=== PATIENT | female | born 1980 | race Caucasian/White ===

== ENCOUNTER 2016-10-05 02:15 | Emergency (ER) | payer SELFPAY ==
[2016-10-05] MEDS ORDERED: FAMOTIDINE 20 MG TABLET PO ONE (03:14)
[2016-10-05] MEDS ORDERED: PREDNISONE 20 MG TABLET PO ONE (03:14)
[2016-10-05] MEDS ORDERED: DIPHENHYDRAMINE HCL 50 MG CAPSULE PO ONE (03:15)
--- NOTE | 2016-10-05 03:20 | ER Document Report ---
ED Skin Rash/Insect Bite/Abscs - General Chief Complaint: Itching Stated Complaint: FEVER/COUGH Time seen by provider: 03:16 Mode of Arrival: Ambulatory Information source: Patient Notes: 35-year-old female presents to ED for cough congestion fever or sore throat for 2 weeks states she's been taken Tylenol and broke out with a rash about a week ago. She states she continue taking the Tylenol and took Benadryl with it, but the rash is not getting better. She states the rash feels like is burning inside and itches very bad. TRAVEL OUTSIDE OF THE [place] IN LAST 30 DAYS: No - HPI Patient complains to provider of: Skin rash/lesion Onset: Last week Onset/Duration: Intermittent Quality of pain: Achy - All over, Burning - The rash Severity: Moderate Pain Level: 3 Skin Character: Urticarial Quality of rash: Itchy, Burning Identify cause: No Exacerbated by: Denies Relieved by: Denies Similar symptoms previously: Yes Recently seen / treated by doctor: No - Related Data Allergies/Adverse Reactions: acetaminophen [From Tylenol] Allergy (Verified 10/05/16 04:37) Hives Past Medical History - General Information source: Patient - Social History Smoking Status: Never Smoker Cigarette use (# per day): No Chew tobacco use (# tins/day): No Smoking Education Provided: No Frequency of alcohol use: None Drug Abuse: None Lives with: Family Family History: Arthritis, DM, Hyperlipidemia, Hypertension. denies: None, Reviewed & Not Pertinent, CAD, COPD, CVA, Malignancy, Thyroid Disfunction, Other Patient has suicidal ideation: No Patient has homicidal ideation: No - Past Medical History Cardiac Medical History: Reports: None Pulmonary Medical History: Reports: None EENT Medical History: Reports: None Neurological Medical History: Reports: None Endocrine Medical History: Reports: None Renal/ Medical History: Reports: None Malignancy Medical History: Reports: None GI Medical History: Reports: None Musculoskeltal Medical History: Reports None Skin Medical History: Reports None Psychiatric Medical History: Reports: None Traumatic Medical History: Reports: None Infectious Medical History: Reports: None Past Surgical History: Reports: Hx Section, Hx Cholecystectomy - Immunizations Immunizations up to date: Yes Hx Diphtheria, Pertussis, Tetanus Vaccination: Yes Review of Systems - Review of Systems Constitutional: Fever, Recent illness EENT: Nose discharge, Sinus discharge, Throat pain Cardiovascular: No symptoms reported Respiratory: No symptoms reported Gastrointestinal: No symptoms reported Genitourinary: No symptoms reported Female Genitourinary: No symptoms reported Musculoskeletal: No symptoms reported Skin: Rash - Urticaria Hematologic/Lymphatic: No symptoms reported Neurological/Psychological: Headaches -: Yes All other systems reviewed and negative Physical Exam - Vital signs Vitals: Temp Pulse Resp BP Pulse Ox 98.2 F 111 H 20 104/77 96 10/05/16 02:20 10/05/16 02:20 10/05/16 02:20 10/05/16 02:20 10/05/16 02:20 Interpretation: Normal - General General appearance: Appears well, Alert - HEENT Head: Normocephalic, Atraumatic Eyes: Normal Pupils: PERRL Ears: Normal External canal: Normal Tympanic membrane: Normal Sinus: Normal Nasal: Swelling, Clear rhinorrhea Mouth/Lips: Normal Mucous membranes: Normal Pharynx: Erythema, Post nasal drainage, Tonsillar hypertrophy Neck: Normal - Respiratory Respiratory status: No respiratory distress Chest status: Nontender Breath sounds: Nonproductive cough Chest palpation: Normal - Cardiovascular Rhythm: Regular Heart sounds: Normal auscultation Murmur: No - Abdominal Inspection: Normal Distension: No distension Bowel sounds: Normal Tenderness: Nontender Organomegaly: No organomegaly - Back Back: Normal, Nontender - Extremities General upper extremity: Normal inspection, Nontender, Normal color, Normal ROM , Normal temperature General lower extremity: Normal inspection, Nontender, Normal color, Normal ROM , Normal temperature, Normal weight bearing. No: Diaz's sign - Neurological Neuro grossly intact: Yes Cognition: Normal Orientation: AAOx4 Flower Coma Scale Eye Opening: Spontaneous Flower Coma Scale Verbal: Oriented [place] Coma Scale Motor: Obeys Commands Flower Coma Scale Total: 15 Speech: Normal Motor strength normal: LUE, RUE, LLE, RLE Sensory: Normal - Psychological Associated symptoms: Normal affect, Normal mood - Skin Skin Temperature: Warm Skin Moisture: Dry Skin Color: Normal Location of irregularity: Generalized Character of irregularity: Urticarial Irregularity with: Tenderness Course - Vital Signs Vital signs: Temp Pulse Resp BP Pulse Ox 98.6 F 97 16 104/70 97 10/05/16 04:18 10/05/16 04:18 10/05/16 04:18 10/05/16 04:18 10/05/16 04:18 Discharge - Discharge Clinical Impression: Allergic reaction Qualifiers: Encounter type: initial encounter Qualified Code(s): T78.40XA - Allergy, unspecified, initial encounter Upper respiratory infection Qualifiers: URI type: unspecified URI Qualified Code(s): J06.9 - Acute upper respiratory infection, unspecified Condition: Stable Disposition: HOME, SELF-CARE Instructions: Family Physicians / Practices Additional Instructions: ACUTE ALLERGIC REACTION: Your symptoms are due to an allergic reaction. Allergy can cause hives, swelling of the hands, feet, and face, hoarseness, and difficulty swallowing or breathing. It may be due to exposure to medication, animal dander, foods, infection, or insect bites. Medication is a common cause, even when prior use of this same medication caused no problems. Acute treatment may include adrenalin and antihistamines. Usually, the specific allergic agent can't be identified unless repeated episodes occur. Home treatment includes the following: (1) Stop any suspicious medications. This will be discussed with you. (2) Oral antihistamines for the next four to five days. Example, diphenhydramine (Benadryl) every four hours. (3) You may also use cimetidine (Tagamet), ranitidine (Zantac), or famotidine ( Pepcid) every four hours if diphenhydramine is not controlling itching and hives. (4) Avoid aspirin until the hives completely disappear. (5) Avoid hot baths or showers until the hives are completely gone. Call the doctor if faintness, difficulty swallowing, tightness in the chest , or wheezing occurs. UPPER RESPIRATORY ILLNESS: You have a viral infection of the respiratory passages -- a "cold." This common infection causes nasal congestion, drainage, and often sore throat and cough. It is highly contagious. The disease usually lasts about 10 to 14 days. There is no "cure" for the viral infection -- it must run its course. If there is a complication, such as bacterial infection in the nose, sinuses, middle ear, or bronchial tubes, antibiotics may be required. The antibiotics won't affect the virus. Drink plenty of fluids. A humidifier may help. An expectorant medication or decongestant may make you more comfortable. Use acetaminophen or ibuprofen for fever or aches. See the doctor if fever persists over two days, if there is any significant worsening of your symptoms, or if you simply fail to improve as expected. USE OF ACETAMINOPHEN (Tylenol): Acetaminophen may be taken for pain relief or fever control. It's much safer than aspirin, offering a wider range of "safe" dosages. It is safe during . Some brand names are Tylenol, Panadol, Datril, Anacin 3, Tempra, and Liquiprin. Acetaminophen can be repeated every four hours. The following are maximum recommended dosages: >89 pounds or adults 650 mg to 900 mg Acetaminophen can be repeated every four hours. Maximum dose not to exceed 4000 mg a day. STEROID MEDICATION: You have been given a medicine of the cortisone/steroid class. This medication is used to control inflammation or allergy. It is usually only given for a short period of time, until the acute process subsides. There are usually no side effects from short-term use of cortisone-like medications. Some persons feel an increased sense of well-being and are not sleepy at bedtime. Long-term use of cortisone medications is best avoided, unless required for a severe condition. If your condition does not remit, or relapses after the course of corticosteroid medication, you should consult your physician. ACID-SUPPRESSING MEDICATION: You have a prescription for medicine which reduces the stomach's secretion of acid. Examples include Zantac, Tagament, and Pepcid. These drugs are often used to allow healing of ulcers or esophagitis. They may be needed to prevent recurrence of ulcers in some patients, or to prevent damage from acid reflux in the esophagus. Take all medication as prescribed, even after the pain is gone. Regular antacids may be added as needed if you have symptoms while taking this medicine. These medications sometimes are prescribed for allergic reactions because they have anti-histaminic effects and relieve the rash and itching of the reaction. There are usually no side effects from this medication. But, in rare cases and particularly in the elderly, serious problems can occur. Contact your doctor if there is fever, rash, hallucinations, confusion, or unusual bruising. Contact your doctor at once if you develop lightheadedness, black or bloody stool, or bloody vomitus. USE OF DIPHENHYDRAMINE: The use of diphenhydramine (Benadryl) has been recommended to control allergic symptoms. The 25 mg strength is available over- the-counter, as well as the elixir. This antihistamine is used for many symptoms. It's useful for itching, watering eyes and nose, allergic swelling, hives, and insect stings. The medication can be repeated four times daily. Age Elixir (12.5 mg/tsp) 25 mg pill 2-3 yr 1/2 tsp 4-8 yr 1 tsp 9-14 yr 2 tsp one tab adult 1-2 tabs Antihistamines may cause drowsiness, especially with the first dose. Do not operate machinery or drive while under the effects of the medication. Do not combine the medication with alcohol, or with any other medication without talking to your doctor. FOLLOW-UP CARE: If you have been referred to a physician for follow-up care, call the physician s office for an appointment as you were instructed or within the next two days. If you experience worsening or a significant change in your symptoms, notify the physician immediately or return to the Emergency Department at any time for re-evaluation. Prescriptions: Prednisone [Deltasone 20 mg Tablet] 3 tab PO DAILY 5 Days
[2016-10-05 04:36] VITALS: BP 104/70
== END 2016-10-05 04:20 | disposition home or self-care (01) ==
LOC: ER 02:15
DX: T78.40XA Allergy, unspecified, initial encounter (principal); J06.9 Acute upper respiratory infection, unspecified; R50.9 Fever, unspecified; R05 Cough; R21 Rash and other nonspecific skin eruption; J02.9 Acute pharyngitis, unspecified
CPT/HCPCS: 99283; 87070; 87880; J7512

== ENCOUNTER 2020-06-03 09:45 | Inpatient (IN) | payer SELFPAY ==
--- NOTE | 2020-06-03 10:20 | ER Document Report ---
ED General - General Chief Complaint: Jaw Pain Stated Complaint: EAR PAIN/LEFT JAW SWELLING Time Seen by Provider: 06/03/20 10:00 Mode of Arrival: Ambulatory Information source: Patient Notes: 39-year-old woman presents to the emergency department with a complaint of swelling in the left jaw and face area. Apparently the swelling to get 2 days ago. She awoke with increased swelling yesterday and went to [facility] where she was given a shot of antibiotics and oral Augmentin. She has taken the fourth dose of Augmentin today. She presents to the emergency department this morning with increased swelling and pain in the left side of the face. She denies a dental problem states that the rash began behind the left ear and has progressed quickly to severe swelling and pain in the left face and jaw. She denies fever, nausea or vomiting. She has no known medical history, no diabetes or hypertension. TRAVEL OUTSIDE OF THE [place] IN LAST 30 DAYS: No - Related Data Allergies/Adverse Reactions: No Known Allergies Allergy (Unverified 06/03/20 09:53) Past Medical History - Social History Smoking Status: Never Smoker Chew tobacco use (# tins/day): No Frequency of alcohol use: None Drug Abuse: None Family History: Arthritis, DM, Hyperlipidemia, Hypertension. denies: None, Reviewed & Not Pertinent, CAD, COPD, CVA, Malignancy, Thyroid Disfunction, Other Patient has homicidal ideation: No Renal/ Medical History: Denies: Hx Peritoneal Dialysis Past Surgical History: Reports: Hx Section, Hx Cholecystectomy - Immunizations Immunizations up to date: Yes Hx Diphtheria, Pertussis, Tetanus Vaccination: Yes Review of Systems - Review of Systems Notes: Constitutional: Negative for fever. HENT: See HPI Eyes: Negative for visual changes. Cardiovascular: Negative for chest pain. Respiratory: Negative for shortness of breath. Gastrointestinal: Negative for abdominal pain, vomiting or diarrhea. Genitourinary: Negative for dysuria. Musculoskeletal: Negative for back pain. Skin: Negative for rash. Neurological: Negative for headaches, weakness or numbness. 10 point ROS negative except as marked above and in HPI. Physical Exam - Vital signs Vitals: Temp Pulse Resp BP Pulse Ox 99.1 F 112 H 20 139/85 H 97 06/03/20 09:53 06/03/20 09:53 06/03/20 09:53 06/03/20 09:53 06/03/20 09:53 - Notes Notes: PHYSICAL EXAMINATION: Physical Exam: General: Well-nourished overweight 39-year-old woman with obvious facial swelling. HEENT: Tissue swelling which extends from the area below the left ear extending across the anterior face and mandible the lower mandibular angle and onto the anterior neck below the chin. There is erythema, tenderness and no focal joints noted. There is swelling around the left ear, the EAC is intact no drainage is noted from the ear. Oral exam there is no swelling around the lower or upper gumline. There is no tenderness to bite along the teeth no obvious infected cavities or abscess. The airway is patent left eye with no swelling no tenderness with extraocular movements. Pupils equal round and reactive to light, MM moist,nares clear, oropharynx clear, airway patent Neck: supple, no adenopathy, no masses. Good range of motion Lungs: clear, no wheezing, no rales no rhonchi CVS: Regular rate and rhythm no murmur gallop or rub Abdomen: Soft, active, nontender, no masses, no hepatosplenomegaly Ext: No edema, clubbing or cyanosis. Neuro: Alert and responsive, moving all 4 extremities on command, cranial nerves intact, no focal findings Skin: Intact no open lesions, no rash PSYCH: Normal mood, normal affect. Course - Re-evaluation Re-evalutation: 06/03/20 12:55 Patient with left facial swelling and tenderness. CT scan revealing a left parotitis, low-grade temp 99 1. Patient notes chills and cold throughout the evening last night. White count is 13.2 and progressive swelling while on oral Augmentin. She also complains of pain and discomfort. Nondiabetic, 39-year-old, a hospital stay with observation and IV antibiotics seems reasonable. I discussed this plan with the patient and she is agreeable. I have contacted the hospitalist, Dr. Benjamin, will admit the patient for the treatment. - Vital Signs Vital signs: Temp Pulse Resp BP Pulse Ox 99.1 F 112 H 20 139/85 H 97 06/03/20 09:53 06/03/20 09:53 06/03/20 09:53 06/03/20 09:53 06/03/20 09:53 - Laboratory Result Diagrams: 06/03/20 10:35 06/03/20 10:35 Laboratory results interpreted by me: 06/03/20 06/03/20 10:35 11:00 WBC 13.2 H Hgb 11.3 L Hct 34.4 L MCV 71 L MCH 23.3 L RDW 19.4 H Absolute Neuts (auto) 10.2 H Urine Blood MODERATE H I have reviewed laboratory data and used this information for the treatment decisions regarding the patient. - Diagnostic Test Radiology reviewed: Image reviewed, Reports reviewed Radiology results interpreted by me: 06/03/20 12:[address] 06/03/20 10:22 IMPRESSION: Constellation of findings consistent with uncomplicated left parotitis. Discharge - Discharge Clinical Impression: Facial cellulitis, Acute parotitis, Left facial swelling Condition: Good Disposition: ADMITTED OBSERVATION Admitting Provider: Sourav (Hospitalist) Unit Admitted: Medical Floor
[2020-06-03] MEDS ORDERED: HYDROMORPHONE HCL INJ/PF 2 MG/ML AMPULE IV ONE (10:23)
[2020-06-03] MEDS ORDERED: CLINDAMYCIN 600 MG/D5W RTU 600 MG/50 ML RTUPB IV ONE (10:24)
[2020-06-03 10:58] LABS: ABSOLUTE EOSINOPHILS # (AUTO) 0.1 10^3/uL (0.0-0.6); ABSOLUTE LYMPHOCYTES (AUTO) 1.9 10^3/uL (0.5-4.7); ABSOLUTE NEUT (AUTO) 10.2 10^3/uL (1.7-8.2); BASOPHILS % (AUTO) 0.2 % (0-2); EOSINOPHILS % (AUTO) 0.4 % (0-6); HEMATOCRIT 34.4 % (36.0-47.0); HEMOGLOBIN 11.3 g/dL (12.0-15.5); LYMPHOCYTES % (AUTO) 14.3 % (13-45); MEAN CORPUSCULAR HEMOGLOBIN 23.3 pg (27.0-33.4); MEAN CORPUSCULAR HGB CONC 32.9 g/dL (32.0-36.0); MEAN CORPUSCULAR VOLUME 71 fl (80-97); MONOCYTES % (AUTO) 7.5 % (3-13); PLATELET COUNT 329 10^3/uL (150-450); RED BLOOD COUNT 4.88 10^6/uL (3.72-5.28); RED CELL DISTRIBUTION WIDTH 19.4 % (11.5-14.0); SEGMENTED NEUTROPHILS % (AUTO) 77.6 % (42-78); TOTAL CELLS COUNTED % (AUTO) 100 %; WHITE BLOOD COUNT 13.2 10^3/uL (4.0-10.5)
[2020-06-03 11:14] LABS: ALBUMIN 4.3 g/dL (3.5-5.0); ALKALINE PHOSPHATASE 63 U/L (38-126); ANION GAP 11 (5-19); ASPARTATE AMINO TRANSFERASE 21 U/L (14-36); BILIRUBIN,DIRECT 0.2 mg/dL (0.0-0.4); BLOOD UREA NITROGEN 11 mg/dL (7-20); CALCIUM 9.4 mg/dL (8.4-10.2); CARBON DIOXIDE 24 mmol/L (22-30); CHLORIDE 104 mmol/L (98-107); GLUCOSE 106 mg/dL (75-110); POTASSIUM 4.2 mmol/L (3.6-5.0); TOTAL PROTEIN 7.3 g/dL (6.3-8.2)
[2020-06-03 11:35] LABS: APPEARANCE,URINE SLIGHTLY-CLOUDY; BILIRUBIN,URINE NEGATIVE (NEGATIVE); COLOR,URINE YELLOW; GLUCOSE, URINE NEGATIVE (NEGATIVE); KETONES,URINE NEGATIVE (NEGATIVE); PROTEIN,URINE NEGATIVE (NEGATIVE); URINE SPECIFIC GRAVITY 1.024; UROBILINOGEN,URINE NEGATIVE mg/dL (<2.0)
--- NOTE | 2020-06-03 12:02 | RADIOLOGY REPORT (SQ) ---
EXAM DESCRIPTION: CT FACIAL AREA WITH IMAGES COMPLETED DATE/TIME: 06/03/2020 11:43 am REASON FOR STUDY: Right facial swelling COMPARISON: None. TECHNIQUE: Post contrast images through the facial bones and orbits windowed for bone and soft tissu e. Additional coronal and sagittal reconstructed images reviewed. All images stored on PACS. All CT scanners at this facility use dose modulation, iterative reconstruction, and/or weight based d osing when appropriate to reduce radiation dose to as low as reasonably achievable (ALARA). [facility]: Dose Right [facility]: CareDose [facility]: Dose Right [facility]: Teradose 4D [facility]: LumaStream CONTRAST TYPE AND DOSE: contrast/concentration: Isovue 350.00 mmol/ml; Total Contrast Delivered: 50. 0 ml; Total Saline Delivered: 49.9 ml RENAL FUNCTION: None required. The patient is less than 50 years old. RADIATION DOSE: CT Rad equipment meets quality standard of care and radiation dose reduction techniq ues were employed. CTDIvol: 30.4 mGy. DLP: 638 mGy-cm. . LIMITATIONS: None. FINDINGS: FACIAL BONES: No fracture or bone lesion. ORBITS: Intact. No fracture. Symmetric intact globes and retroorbital soft tissues. PARANASAL SINUSES: Clear. No significant mucosal thickening, mass or fluid. No nasal polyps. Maxilla ry sinus outlets are patent. SOFT TISSUES: No mass or edema. No abnormal enhancement. INFERIOR BRAIN: Limited view. No acute findings. OTHER: The left parotid gland appears edematous and hyperemic with surrounding inflammatory changes t o include the subcutaneous fat, left anterior cervical soft tissues, and left parapharyngeal space. The airway remains patent. No abscess. Left cervical reactive lymphadenopathy. IMPRESSION: Constellation of findings consistent with uncomplicated left parotitis. TECHNICAL DOCUMENTATION: JOB ID: [id number] Quality ID # [id number]: Final reports with documentation of one or more dose reduction techniques (e.g., Au tomated exposure control, adjustment of the mA and/or kV according to patient size, use of iterative reconstruction technique) 2010 [employer]- All Rights Reserved Reading location - IP/workstation name: [email or web address]
[2020-06-03] MEDS ORDERED: ONDANSETRON HCL INJ/PF 4 MG/2 ML SDV IV PRN (15:24)
[2020-06-03] MEDS ORDERED: NORMAL SALINE 1000 ML 1,000 ML IV ONE (15:24)
[2020-06-03] MEDS ORDERED: RINGERS SOLUTION,LACTATED 1,000 ML IV ONE (15:43)
--- NOTE | 2020-06-03 16:06 | PDOC H&P ---
History of Present Illness Admission Date/PCP: 06/03/20 15:24 Patient complains of: left facial swelling, headache History of Present Illness: TREE JENNINGS is a 39 year old female Past Medical History Medical History: None Cardiac Medical History: Reports: None Pulmonary Medical History: Reports: None EENT Medical History: Reports: None Neurological Medical History: Reports: None Endocrine Medical History: Reports: None Renal/ Medical History: Reports: None Malignancy Medical History: Reports: None GI Medical History: Reports: None Musculoskeltal Medical History: Reports: None Psychiatric Medical History: Reports: None Past Surgical History Past Surgical History: Reports: Section, Cholecystectomy Social History Information Source: Patient Lives with: Family Smoking Status: Never Smoker Electronic Cigarette use?: No Hx Prescription Drug Abuse: No Family History Family History: Arthritis, DM, Hyperlipidemia, Hypertension. denies: None, Reviewed & Not Pertinent, CAD, COPD, CVA, Malignancy, Thyroid Disfunction, Other Parental Family History Reviewed: Yes Children Family History Reviewed: Yes Sibling(s) Family History Reviewed.: Yes Medication/Allergy Home Medications: No Home Medications 06/03/20 Allergies/Adverse Reactions: No Known Allergies Allergy (Unverified 06/03/20 09:53) Review of Systems Constitutional: PRESENT: chills, fever(s), headache(s) Eyes: ABSENT: visual disturbances Ears: PRESENT: hearing changes Nose, Mouth, and Throat: PRESENT: headache(s), mouth pain Cardiovascular: ABSENT: chest pain, dyspnea on exertion, edema, palpitations Respiratory: ABSENT: cough, dyspnea, hemoptysis Genitourinary: ABSENT: dysuria Musculoskeletal: ABSENT: deformity Integumentary: ABSENT: diaphoresis Neurological: ABSENT: abnormal speech, confusion, convulsions, dizziness Psychiatric: ABSENT: anxiety, suicidal ideation Physical Exam Vital Signs: Temp Pulse Resp BP Pulse Ox 100.2 F 112 H 18 159/99 H 99 06/03/20 14:12 06/03/20 09:53 06/03/20 14:13 06/03/20 14:13 06/03/20 14:13 Intake & Output 06/02/20 06/03/20 06/04/20 06:59 06:59 06:59 Intake Total 50 Balance 50 Weight 100.7 kg General appearance: PRESENT: no acute distress, cooperative, obese Head exam: PRESENT: atraumatic, normocephalic Eye exam: PRESENT: EOMI, PERRLA Ear exam: PRESENT: TM's normal bilaterally, other - hyperemic left ear canal, +ve tenderness left tragal and pre auricular area Neck exam: PRESENT: lymphadenopathy, tenderness - left sided from pre auricular to left submandibular. ABSENT: meningismus Respiratory exam: PRESENT: clear to auscultation freya, symmetrical, unlabored Cardiovascular exam: PRESENT: RRR, +S1, +S2 Pulses: PRESENT: +2 pedal pulses bilateral Vascular exam: PRESENT: normal capillary refill GI/Abdominal exam: PRESENT: normal bowel sounds, soft. ABSENT: rebound, tenderness Extremities exam: PRESENT: full ROM Musculoskeletal exam: PRESENT: full ROM Neurological exam: PRESENT: alert, awake, oriented to person, oriented to place, oriented to time, other - purely north korean speaking Skin exam: PRESENT: normal color Results Laboratory Results: 06/03/20 10:35 06/03/20 10:35 06/03/20 06/03/20 06/03/20 10:35 10:35 11:00 WBC 13.2 H RBC 4.88 Hgb 11.3 L Hct 34.4 L MCV 71 L MCH 23.3 L MCHC 32.9 RDW 19.4 H Plt Count 329 Seg Neutrophils % 77.6 Sodium 138.7 Potassium 4.2 Chloride 104 Carbon Dioxide 24 Anion Gap 11 BUN 11 Creatinine 0.75 Est GFR ( Amer) > 60 Glucose 106 Calcium 9.4 Total Bilirubin 1.0 AST 21 Alkaline Phosphatase 63 Total Protein 7.3 Albumin 4.3 Urine Color YELLOW Urine Appearance SLIGHTLY-CLOUDY Urine pH 5.0 Ur Specific [place] 1.024 Urine Protein NEGATIVE Urine Glucose (UA) NEGATIVE Urine Ketones NEGATIVE Urine Blood MODERATE H Urine RBC (Auto) 3 Impressions: Facial Bones CT 06/03/20 10:22 IMPRESSION: Constellation of findings consistent with uncomplicated left parotitis. Assessment and Plan - Diagnosis (1) Acute parotitis Is this a current diagnosis for this admission?: Yes Plan: - has been having ear pain bilateral for at least 1 month with minimal clear to yellowish sometimes foul smelling discharge. +ve headache - no recent hospitalization, no recent swimming - exam ear showed otitis externa bilateral and pre auricular swelling, erythema and tenderness extending to submandibular area - WBC 13 - CT facial uncomplicated left parotitis - will order CT head to r/o extension of infection to brain since she has headaches - continue Clindamycin 600 q6H + ceftri - ENT consult - will hydrate her (2) Acute otitis externa of both ears Qualifiers: Otitis externa type: unspecified type Qualified Code(s): H60.503 - Unspecified acute noninfective otitis externa, bilateral Is this a current diagnosis for this admission?: Yes Plan: - has been having bilateral ear pain with clear to yellowish discharge sometimes foul smelling - +ve tragal tenderness L>R - +ve swelling ear canal bilateral L>R - Clinda and ceftri for parotitis seen on CT - cipro drops for otitis externa - ENT consult (3) Facial cellulitis Is this a current diagnosis for this admission?: Yes Plan: - secondary to parotitis left -management as above (4) Headache Qualifiers: Headache type: other headache syndrome Qualified Code(s): G44.89 - Other headache syndrome Is this a current diagnosis for this admission?: Yes Plan: - likely secondary to ongoing infection - tylenol and morphine - Time Time Spent with patient: 25-34 minutes Anticipated Discharge Disposition: Home, Self Care Anticipated Discharge Timeframe: within 48 hours
[2020-06-03] MEDS: MORPHINE SULFATE 10 MG/ML INJ IV PRN ×2 (16:18→20:18)
[2020-06-03] MEDS: KETOROLAC TROMETHAMINE INJ/PF 30 MG/1 ML SDV IV SCH ×2 (17:09→23:08)
[2020-06-03] MEDS ORDERED: CIPROFLOXACIN HCL/DEXAMETH OTIC DROP 7.5 ML AD SCH (18:00)
[2020-06-03] MEDS: NORMAL SALINE 1000 ML 1,000 ML IV PRN (18:15)
[2020-06-03] MEDS: ENOXAPARIN SODIUM INJ 40 MG/0.4 ML DISP.SYRIN SUBCUT SCH (18:30)
[2020-06-03] MEDS: CEFTRIAXONE 2 GM/D5W RTU 2 GM/50 ML RTUPB IV SCH (18:45)
--- NOTE | 2020-06-03 18:53 | RADIOLOGY REPORT (SQ) ---
EXAM DESCRIPTION: CT HEAD WITHOUT IMAGES COMPLETED DATE/TIME: 06/03/2020 6:39 pm REASON FOR STUDY: acute parotitis complaining of headache COMPARISON: CT facial area with contrast 06/03/2020. TECHNIQUE: Axial images acquired through the brain without intravenous contrast. Images reviewed wi th bone, brain and subdural windows. Images stored on PACS. All CT scanners at this facility use dose modulation, iterative reconstruction, and/or weight based d osing when appropriate to reduce radiation dose to as low as reasonably achievable (ALARA). [facility]: Dose Right [facility]: CareDose [facility]: Dose Right [facility]: Teradose 4D [facility]: Real Estate Direct RADIATION DOSE: CT Rad equipment meets quality standard of care and radiation dose reduction techniq ues were employed. CTDIvol: 53.2 mGy. DLP: 991 mGy-cm. mGy. LIMITATIONS: None. FINDINGS: VENTRICLES: Normal size and contour. CEREBRUM: No mass effect. No hemorrhage. No midline shift. Normal castellanos/white matter differentiatio n. No evidence for acute territorial infarction. CEREBELLUM: No mass effect. No hemorrhage. No alteration of density. No evidence for acute infarct ion. EXTRAAXIAL SPACES: No fluid collections. ORBITS AND GLOBE: Symmetrical contour of the globes. CALVARIUM: No depressed skull fracture. PARANASAL SINUSES: No air-fluid level. SOFT TISSUES: No hematoma. OTHER: Heterogeneous enlargement of the visualized left parotid gland with adjacent soft tissue stra nding. IMPRESSION: 1. No acute intracranial hemorrhage or acute territorial infarct. 2. Heterogeneous enlargement of the visualized left parotid gland with adjacent inflammatory changes , consistent with known acute parotitis, better evaluated on earlier CT facial area. EVIDENCE OF ACUTE STROKE: NO. COMMENT: Quality ID # [id number]: Final reports with documentation of one or more dose reduction techniques (e.g., Automated exposure control, adjustment of the mA and/or kV according to patient size, use of iterative reconstruction technique) TECHNICAL DOCUMENTATION: JOB ID: [id number] [place]-[employer]- All Rights Reserved Reading location - IP/workstation name: [email or web address]
[2020-06-03] MEDS: CLINDAMYCIN 600 MG/D5W RTU 600 MG/50 ML RTUPB IV SCH ×2 (19:48→23:08)
[2020-06-03] MEDS: ACETAMINOPHEN 325 MG TABLET PO PRN (20:17)
[2020-06-04] MEDS: MORPHINE SULFATE 10 MG/ML INJ IV PRN (03:10)
[2020-06-04] MEDS: NORMAL SALINE 1000 ML 1,000 ML IV PRN ×3 (03:14→23:08)
[2020-06-04] MEDS: KETOROLAC TROMETHAMINE INJ/PF 30 MG/1 ML SDV IV SCH ×4 (05:38→23:07)
[2020-06-04] MEDS: CLINDAMYCIN 600 MG/D5W RTU 600 MG/50 ML RTUPB IV SCH ×4 (05:38→23:08)
[2020-06-04 06:30] LABS: ABSOLUTE BASOPHILS # (AUTO) 0.1 10^3/uL (0.0-0.2); ABSOLUTE EOSINOPHILS # (AUTO) 0.1 10^3/uL (0.0-0.6); ABSOLUTE LYMPHOCYTES (AUTO) 2.1 10^3/uL (0.5-4.7); ABSOLUTE MONOCYTES (AUTO) 1.1 10^3/uL (0.1-1.4); ABSOLUTE NEUT (AUTO) 8.7 10^3/uL (1.7-8.2); BASOPHILS % (AUTO) 0.8 % (0-2); EOSINOPHILS % (AUTO) 0.8 % (0-6); HEMATOCRIT 29.2 % (36.0-47.0); HEMOGLOBIN 9.8 g/dL (12.0-15.5); LYMPHOCYTES % (AUTO) 17.2 % (13-45); MEAN CORPUSCULAR HEMOGLOBIN 23.5 pg (27.0-33.4); MEAN CORPUSCULAR HGB CONC 33.5 g/dL (32.0-36.0); MEAN CORPUSCULAR VOLUME 70 fl (80-97); MONOCYTES % (AUTO) 8.8 % (3-13); PLATELET COUNT 302 10^3/uL (150-450); RED BLOOD COUNT 4.17 10^6/uL (3.72-5.28); RED CELL DISTRIBUTION WIDTH 19.3 % (11.5-14.0); SEGMENTED NEUTROPHILS % (AUTO) 72.4 % (42-78); TOTAL CELLS COUNTED % (AUTO) 100 %
[2020-06-04 07:02] LABS: ALBUMIN 3.5 g/dL (3.5-5.0); ALKALINE PHOSPHATASE 58 U/L (38-126); ANION GAP 11 (5-19); ASPARTATE AMINO TRANSFERASE 18 U/L (14-36); BILIRUBIN,DIRECT 0.2 mg/dL (0.0-0.4); BILIRUBIN,TOTAL 0.8 mg/dL (0.2-1.3); BLOOD UREA NITROGEN 8 mg/dL (7-20); CALCIUM 8.4 mg/dL (8.4-10.2); CARBON DIOXIDE 20 mmol/L (22-30); CHLORIDE 106 mmol/L (98-107); GLUCOSE 102 mg/dL (75-110); POTASSIUM 3.9 mmol/L (3.6-5.0); TOTAL PROTEIN 6.2 g/dL (6.3-8.2)
[2020-06-04] MEDS: CIPROFLOXACIN HCL/DEXAMETH OTIC DROP 7.5 ML AU SCH ×2 (10:22→17:03)
[2020-06-04] MEDS: ENOXAPARIN SODIUM INJ 40 MG/0.4 ML DISP.SYRIN SUBCUT SCH (10:22)
[2020-06-04] MEDS: ACETAMINOPHEN 325 MG TABLET PO PRN (10:32)
--- NOTE | 2020-06-04 13:08 | PDOC CONSULTATION ---
Consultation Consult Date: 06/04/20 Provider Consulted: JIMENA HICKS History of Present Illness Admission Date/PCP: 06/03/20 15:24 History of Present Illness: Asked to evaluate this 39y/o female with left sided facial swelling for about 1 week. Pt evaluated in ER and CT scan performed which demonstrated unilateral parotid edema. No abscess formation. Pt is from [facility]. Immunization status is unknow. Pt was admitted and started on IV antibx. Pt states doing better. Past Medical History Cardiac Medical History: Reports: None Pulmonary Medical History: Reports: None EENT Medical History: Reports: None Neurological Medical History: Reports: None Endocrine Medical History: Reports: None Renal/ Medical History: Reports: None Malignancy Medical History: Reports: None GI Medical History: Reports: None Musculoskeltal Medical History: Reports: None Psychiatric Medical History: Reports: None Denies: Depression Past Surgical History Past Surgical History: Reports: Section, Cholecystectomy Social History Lives with: Family Smoking Status: Never Smoker Electronic Cigarette use?: No Frequency of Alcohol Use: None Hx Recreational Drug Use: No Hx Prescription Drug Abuse: No Family History Family History: Arthritis, DM, Hyperlipidemia, Hypertension. denies: None, Reviewed & Not Pertinent, CAD, COPD, CVA, Malignancy, Thyroid Disfunction, Other Parental Family History Reviewed: No Children Family History Reviewed: No Sibling(s) Family History Reviewed.: No Medication/Allergy Home Medications: No Home Medications 06/03/20 Allergies/Adverse Reactions: No Known Allergies Allergy (Unverified 06/03/20 09:53) Review of Systems Constitutional: PRESENT: as per HPI Eyes: PRESENT: as per HPI Ears: PRESENT: as per HPI Nose, Mouth, and Throat: PRESENT: as per HPI Cardiovascular: PRESENT: as per HPI Respiratory: PRESENT: as per HPI Gastrointestinal: PRESENT: as per HPI Genitourinary: PRESENT: as per HPI Musculoskeletal: PRESENT: as per HPI Integumentary: PRESENT: as per HPI Neurological: PRESENT: as per HPI Psychiatric: PRESENT: as per HPI Endocrine: PRESENT: as per HPI Physical Exam Vital Signs: Temp Pulse Resp BP Pulse Ox 98.7 F 96 20 116/65 99 06/04/20 08:11 06/04/20 08:11 06/04/20 08:11 06/04/20 08:11 06/04/20 08:11 Intake & Output 06/03/20 06/04/20 06/05/20 06:59 06:59 06:59 Intake Total 3390 1000 Balance 3390 1000 Weight 123.2 kg Exam: Face/Neck: enlarged, tender left parotid gland. Mild erythema noted over left face and extending to neck. OC/OP: Stensen's duct with clear saliva. CT Neck: inflammatory changes involving the left parotid without evidence of abscess. CT scan personally reviewed by myself Results Laboratory Results: 06/04/20 06:00 06/04/20 06:00 06/04/20 06/04/20 06:00 06:00 WBC 12.0 H RBC 4.17 Hgb 9.8 L Hct 29.2 L MCV 70 L MCH 23.5 L MCHC 33.5 RDW 19.3 H Plt Count 302 Seg Neutrophils % 72.4 Sodium 137.0 Potassium 3.9 Chloride 106 Carbon Dioxide 20 L Anion Gap 11 BUN 8 Creatinine 0.65 Est GFR ( Amer) > 60 Glucose 102 Calcium 8.4 Total Bilirubin 0.8 AST 18 Alkaline Phosphatase 58 Total Protein 6.2 L Albumin 3.5 Impressions: Head CT 06/03/20 00:00 IMPRESSION: 1. No acute intracranial hemorrhage or acute territorial infarct. 2. Heterogeneous enlargement of the visualized left parotid gland with adjacent inflammatory changes, consistent with known acute parotitis, better evaluated on earlier CT facial area. EVIDENCE OF ACUTE STROKE: NO. Facial Bones CT 06/03/20 10:22 IMPRESSION: Constellation of findings consistent with uncomplicated left parotitis. Assessment & Plan - Diagnosis (1) Acute parotitis Is this a current diagnosis for this admission?: Yes Plan: 1. treatment plan discussed with pt and nursing staff 2. pt with unilateral parodititis - consider mumps. Would check pt's immunizations status 3. continue with IV antibx. 4. Recommend warm compresses to affected area along with sialogagues. Avoid caffinated beverages. Drink plenty of fluids. Also recommend parotid massage. (2) Facial cellulitis Is this a current diagnosis for this admission?: Yes (3) Left facial swelling Is this a current diagnosis for this admission?: Yes
--- NOTE | 2020-06-04 13:31 | PDOC PROGRESS REPORT ---
Subjective Progress Note for:: 06/04/20 Subjective:: Marcy Flores is a 39/F, no significant past medical history who came in the emergency room today due to headache, ear pain, left facial swelling. According to the patient she has been having bilateral ear pain for about a month now, with associated minimal clear to yellowish discharge that is sometimes foul- smelling. No consult done. Yesterday when she woke up she noticed left facial redness swelling, she went to an urgent care and she was given 1 dose of cef triaxone IM and discharged on oral Augmentin. This morning she noted that there was more swelling with increased pain and tenderness on the left side of her face prompting ED consult. In the ED, blood pressure 59/88, heart rate 117, temp 100.2, O2 sat 98% on room air. Physical exam noted swelling, erythema and tenderness on the preauricular area extending to the angle of the mandible and submandibular area. CT facial showed left-sided parotitis, no abscess. She was given clindamycin IV and hospitalist service was called to admit and manage her. Dr. Schroeder was consulted for ENT. D2 hospital stay 06/04/20. Patient was seen and examined at bedside. She reports that her pain and headache is much better. Afebrile, able to tolerate full liquid diet. Dr. Schroeder saw her who recommended sour foods to facilitate saliva flow. CT head negative for extension of infection to the brain. Reason For Visit: ACUTE PAROTITIS LEFT Physical Exam Vital Signs: Temp Pulse Resp BP Pulse Ox 98.7 F 96 20 116/65 99 06/04/20 08:11 06/04/20 08:11 06/04/20 08:11 06/04/20 08:11 06/04/20 08:11 Intake & Output 06/03/20 06/04/20 06/05/20 06:59 06:59 06:59 Intake Total 3390 1000 Balance 3390 1000 Weight 123.2 kg General appearance: PRESENT: no acute distress, cooperative Head exam: PRESENT: atraumatic, normocephalic Eye exam: PRESENT: EOMI, PERRLA Mouth exam: PRESENT: moist Neck exam: PRESENT: meningismus, other - +ve swelling left side of face from pre auricular to angle of mandible and submandibular area Respiratory exam: PRESENT: clear to auscultation freya, symmetrical, unlabored Cardiovascular exam: PRESENT: RRR, +S1, +S2 Pulses: PRESENT: +2 pedal pulses bilateral GI/Abdominal exam: PRESENT: normal bowel sounds, soft. ABSENT: rebound, tenderness Extremities exam: PRESENT: full ROM Musculoskeletal exam: PRESENT: full ROM Neurological exam: PRESENT: alert, awake, oriented to person, oriented to place, oriented to time Results Laboratory Results: 06/04/20 06:00 06/04/20 06:00 06/04/20 06/04/20 06:00 06:00 WBC 12.0 H RBC 4.17 Hgb 9.8 L Hct 29.2 L MCV 70 L MCH 23.5 L MCHC 33.5 RDW 19.3 H Plt Count 302 Seg Neutrophils % 72.4 Sodium 137.0 Potassium 3.9 Chloride 106 Carbon Dioxide 20 L Anion Gap 11 BUN 8 Creatinine 0.65 Est GFR ( Amer) > 60 Glucose 102 Calcium 8.4 Total Bilirubin 0.8 AST 18 Alkaline Phosphatase 58 Total Protein 6.2 L Albumin 3.5 Impressions: Head CT 06/03/20 00:00 IMPRESSION: 1. No acute intracranial hemorrhage or acute territorial infarct. 2. Heterogeneous enlargement of the visualized left parotid gland with adjacent inflammatory changes, consistent with known acute parotitis, better evaluated on earlier CT facial area. EVIDENCE OF ACUTE STROKE: NO. Facial Bones CT 06/03/20 10:22 IMPRESSION: Constellation of findings consistent with uncomplicated left parotitis. Assessment and Plan - Diagnosis (1) Acute parotitis Is this a current diagnosis for this admission?: Yes Plan: - has been having ear pain bilateral for at least 1 month with minimal clear to yellowish sometimes foul smelling discharge. +ve headache - no recent hospitalization, no recent swimming - exam ear showed otitis externa bilateral and pre auricular swelling, erythema and tenderness extending to submandibular area - WBC 13>12.0 - A1C normal, non diabetic - CT facial uncomplicated left parotitis - CT head negative - continue D2 Clindamycin 600 q6H + ceftri - ENT consult - [facility] to check mumps immunity - continue IV fluids (2) Acute otitis externa of both ears Qualifiers: Otitis externa type: unspecified type Qualified Code(s): H60.503 - Unspecified acute noninfective otitis externa, bilateral Is this a current diagnosis for this admission?: Yes Plan: - has been having bilateral ear pain with clear to yellowish discharge sometimes foul smelling - +ve tragal tenderness L>R - +ve swelling ear canal bilateral L>R - Clinda and ceftri for parotitis seen on CT - cipro drops for otitis externa - ENT consult (3) Facial cellulitis Is this a current diagnosis for this admission?: Yes Plan: - secondary to parotitis left -management as above (4) Headache Qualifiers: Headache type: other headache syndrome Qualified Code(s): G44.89 - Other headache syndrome Is this a current diagnosis for this admission?: Yes Plan: - likely secondary to ongoing infection - tylenol and morphine - Time Time Spent with patient: 25-34 minutes Medications reviewed and adjusted accordingly: Yes Anticipated Discharge Disposition: Home, Self Care Anticipated Discharge Timeframe: within 48 hours
[2020-06-04] MEDS: CEFTRIAXONE 2 GM/D5W RTU 2 GM/50 ML RTUPB IV SCH (17:51)
[2020-06-05] MEDS: KETOROLAC TROMETHAMINE INJ/PF 30 MG/1 ML SDV IV SCH ×2 (05:17→12:54)
[2020-06-05] MEDS: CLINDAMYCIN 600 MG/D5W RTU 600 MG/50 ML RTUPB IV SCH ×2 (05:17→12:51)
[2020-06-05 05:45] LABS: ABSOLUTE BASOPHILS # (AUTO) 0.1 10^3/uL (0.0-0.2); ABSOLUTE EOSINOPHILS # (AUTO) 0.3 10^3/uL (0.0-0.6); ABSOLUTE LYMPHOCYTES (AUTO) 2.4 10^3/uL (0.5-4.7); ABSOLUTE MONOCYTES (AUTO) 0.8 10^3/uL (0.1-1.4); ABSOLUTE NEUT (AUTO) 6.6 10^3/uL (1.7-8.2); BASOPHILS % (AUTO) 0.9 % (0-2); HEMATOCRIT 28.4 % (36.0-47.0); HEMOGLOBIN 9.6 g/dL (12.0-15.5); LYMPHOCYTES % (AUTO) 23.4 % (13-45); MEAN CORPUSCULAR HEMOGLOBIN 23.8 pg (27.0-33.4); MEAN CORPUSCULAR HGB CONC 33.7 g/dL (32.0-36.0); MEAN CORPUSCULAR VOLUME 71 fl (80-97); MONOCYTES % (AUTO) 7.8 % (3-13); PLATELET COUNT 298 10^3/uL (150-450); RED BLOOD COUNT 4.03 10^6/uL (3.72-5.28); SEGMENTED NEUTROPHILS % (AUTO) 64.9 % (42-78); TOTAL CELLS COUNTED % (AUTO) 100 %; WHITE BLOOD COUNT 10.1 10^3/uL (4.0-10.5)
[2020-06-05 06:08] LABS: ALBUMIN 3.6 g/dL (3.5-5.0); ALKALINE PHOSPHATASE 59 U/L (38-126); ANION GAP 12 (5-19); ASPARTATE AMINO TRANSFERASE 23 U/L (14-36); BILIRUBIN,DIRECT 0.2 mg/dL (0.0-0.4); BILIRUBIN,TOTAL 0.4 mg/dL (0.2-1.3); BLOOD UREA NITROGEN 7 mg/dL (7-20); CALCIUM 8.7 mg/dL (8.4-10.2); CARBON DIOXIDE 19 mmol/L (22-30); CHLORIDE 108 mmol/L (98-107); GLUCOSE 95 mg/dL (75-110); POTASSIUM 3.9 mmol/L (3.6-5.0); TOTAL PROTEIN 6.3 g/dL (6.3-8.2)
[2020-06-05] MEDS: ENOXAPARIN SODIUM INJ 40 MG/0.4 ML DISP.SYRIN SUBCUT SCH (09:11)
[2020-06-05] MEDS: NORMAL SALINE 1000 ML 1,000 ML IV PRN (09:11)
[2020-06-05] MEDS: CIPROFLOXACIN HCL/DEXAMETH OTIC DROP 7.5 ML AU SCH (09:11)
--- NOTE | 2020-06-05 12:40 | PDOC DISCHARGE SUMMARY ---
Impression - Admit/DC Date/PCP Admission Date/Primary Care Provider: 06/03/20 15:24 Discharge Date: 06/05/20 - Discharge Diagnosis (1) Acute parotitis Is this a current diagnosis for this admission?: Yes (2) Acute otitis externa of both ears Is this a current diagnosis for this admission?: Yes (3) Facial cellulitis Is this a current diagnosis for this admission?: Yes (4) Headache Is this a current diagnosis for this admission?: Yes - Additional Information Discharge Diet: Regular Referrals: [facility] [Provider Group] Prescriptions: Amoxicillin/Potassium Clav [Augmentin 875-125 Tablet] 1 tab PO Q12 8 Days #16 tablet Home Medications: Amoxicillin/Potassium Clav [Augmentin 875-125 Tablet] 1 tab PO Q12 8 Days #16 tablet 06/05/20 History of Present Illiness History of Present Illness: According to admitting provider: FloresMarcy mccartney is a 39/F, no significant past medical history who came in the emergency room today due to headache, ear pain, left facial swelling. According to the patient she has been having bilateral ear pain for about a month now, with associated minimal clear to yellowish discharge that is sometimes foul- smelling. No consult done. Yesterday when she woke up she noticed left facial redness swelling, she went to an urgent care and she was given 1 dose of ceftriaxone IM and discharged on oral Augmentin. This morning she noted that there was more swelling with increased pain and tenderness on the left side of her face prompting ED consult. In the ED, blood pressure 59/88, heart rate 117, temp 100.2, O2 sat 98% on room air. Physical exam noted swelling, erythema and tenderness on the preauricular area extending to the angle of the mandible and submandibular area. CT facial showed left-sided parotitis, no abscess. She was given clindamycin IV and hospitalist service was called to admit and manage her. Dr. Schroeder was consulted for ENT. Hospital Course Hospital Course: Patient was admitted for evaluation and treatment of left parotid gland inflammation. Notably her symptoms had just started very recently and she does not remember ever having any MMR vaccine in the past. She was started on broad- spectrum IV antibiotics with ceftriaxone and clindamycin. Facial CT showed findings consistent with uncomplicated left parotitis without any abscess. Head CT was also unremarkable for any spread of infection to the brain or sinuses. Blood work revealed some leukocytosis. Vital signs also indicated of of fever. Blood cultures are negative at 48 hours. Patient was also started on Cipro eardrops with concern for acute otitis externa which is likely secondary to the same infectious pathogen that is causing patient's parotitis. Patient was evaluated by ENT. Mumps serology was sent. Patient's acute parotitis could have been caused by a virus or bacterial pathogen. Given patient's lack of vaccination, it is very likely that she is experiencing viral parotitis secondary to mumps. I do not see any suppuration in her oral cavity. Patient has been instructed to remain on the isolation and avoid sharing utensils or salivary exchange for at least 3 more days to limit transmission to others. It is expected that this should resolve spontaneously if viral. However, I will discharge patient with Augmentin for 8 days to complete 10 days of antibiotic treatment for bacterial parotitis just in case the cause is bacterial. I believe resolution and treatment of her parotitis would culminate in resolution of her otitis as well. Encourage patient to ensure oral hydration and to [facility]. She can take [id number] Tylenol or ibuprofen for fevers. Physical Exam Vital Signs: Temp Pulse Resp BP Pulse Ox 98.4 F 95 17 100/79 98 06/05/20 08:42 06/05/20 08:42 06/05/20 08:42 06/05/20 08:42 06/05/20 08:42 Intake & Output 06/04/20 06/05/20 06/06/20 06:59 06:59 06:59 Intake Total 3390 4212 Balance 3390 4212 Weight 123.2 kg 123.2 kg General appearance: PRESENT: no acute distress, cooperative Eye exam: ABSENT: conjunctiva pink, periorbital swelling, scleral icterus Mouth exam: PRESENT: other - No notable exudation or suppuration in the oral cavity Neck exam: PRESENT: other - Enlarged swelling of left parotid which has improved since presentation going across below her jaw with mild erythema and tenderness. Respiratory exam: PRESENT: unlabored. ABSENT: stridor, tachypnea, wheezes Cardiovascular exam: PRESENT: +S1, +S2. ABSENT: tachycardia Neurological exam: PRESENT: alert, awake Results Laboratory Results: WBC 10.1 10^3/uL (4.0-10.5) 06/05/20 05:11 RBC 4.03 10^6/uL (3.72-5.28) 06/05/20 05:11 Hgb 9.6 g/dL (12.0-15.5) L 06/05/20 05:11 Hct 28.4 % (36.0-47.0) L 06/05/20 05:11 MCV 71 fl (80-97) L 06/05/20 05:11 MCH 23.8 pg (27.0-33.4) L 06/05/20 05:11 MCHC 33.7 g/dL (32.0-36.0) 06/05/20 05:11 RDW 19.0 % (11.5-14.0) H 06/05/20 05:11 Plt Count 298 10^3/uL (150-450) 06/05/20 05:11 Lymph % (Auto) 23.4 % (13-45) 06/05/20 05:11 [place] % (Auto) 7.8 % (3-13) 06/05/20 05:11 Eos % (Auto) 3.0 % (0-6) 06/05/20 05:11 Baso % (Auto) 0.9 % (0-2) 06/05/20 05:11 Absolute Neuts (auto) 6.6 10^3/uL (1.7-8.2) 06/05/20 05:11 Absolute Lymphs (auto) 2.4 10^3/uL (0.5-4.7) 06/05/20 05:11 Absolute Monos (auto) 0.8 10^3/uL (0.1-1.4) 06/05/20 05:11 Absolute Eos (auto) 0.3 10^3/uL (0.0-0.6) 06/05/20 05:11 Absolute Basos (auto) 0.1 10^3/uL (0.0-0.2) 06/05/20 05:11 Seg Neutrophils % 64.9 % (42-78) 06/05/20 05:11 Sodium 138.9 mmol/L (137-145) 06/05/20 05:11 Potassium 3.9 mmol/L (3.6-5.0) 06/05/20 05:11 Chloride 108 mmol/L (98-107) H 06/05/20 05:11 Carbon Dioxide 19 mmol/L (22-30) L 06/05/20 05:11 Anion Gap 12 (5-19) 06/05/20 05:11 BUN 7 mg/dL (7-20) 06/05/20 05:11 Creatinine 0.62 mg/dL (0.52-1.25) 06/05/20 05:11 Est GFR ( Amer) > 60 (>60) 06/05/20 05:11 Est GFR (MDRD) Non-Af > 60 (>60) 06/05/20 05:11 Glucose 95 mg/dL (75-110) 06/05/20 05:11 Hemoglobin A1c % 4.6 % (4.7-6.0) L 06/04/20 06:00 Calcium 8.7 mg/dL (8.4-10.2) 06/05/20 05:11 Total Bilirubin 0.4 mg/dL (0.2-1.3) 06/05/20 05:11 Direct Bilirubin 0.2 mg/dL (0.0-0.4) 06/05/20 05:11 Neonat Total Bilirubin Not Reportable 06/05/20 05:11 Neonat Direct Bilirubin Not Reportable 06/05/20 05:11 Neonat Indirect Bili Not Reportable 06/05/20 05:11 AST 23 U/L (14-36) 06/05/20 05:11 ALT 23 U/L (<35) 06/05/20 05:11 Alkaline Phosphatase 59 U/L (38-126) 06/05/20 05:11 Total Protein 6.3 g/dL (6.3-8.2) 06/05/20 05:11 Albumin 3.6 g/dL (3.5-5.0) 06/05/20 05:11 Urine Color YELLOW 06/03/20 11:00 Urine Appearance SLIGHTLY-CLOUDY 06/03/20 11:00 Urine pH 5.0 (5.0-9.0) 06/03/20 11:00 Ur Specific [place] 1.024 06/03/20 11:00 Urine Protein NEGATIVE mg/dL (NEGATIVE) 06/03/20 11:00 Urine Glucose (UA) NEGATIVE mg/dL (NEGATIVE) 06/03/20 11:00 Urine Ketones NEGATIVE mg/dL (NEGATIVE) 06/03/20 11:00 Urine Blood MODERATE (NEGATIVE) H 06/03/20 11:00 Urine Nitrite (Reflex) NEGATIVE (NEGATIVE) 06/03/20 11:00 Urine Bilirubin NEGATIVE (NEGATIVE) 06/03/20 11:00 Urine Urobilinogen NEGATIVE mg/dL (<2.0) 06/03/20 11:00 Leukocyte Esterase Rfl NEGATIVE (NEGATIVE) 06/03/20 11:00 Urine RBC (Auto) 3 /HPF 06/03/20 11:00 U Hyaline Cast (Auto) 1 /LPF 06/03/20 11:00 Urine WBC (Reflex) 1 /HPF 06/03/20 11:00 Squamous Epi Cells Auto 6 /HPF 06/03/20 11:00 Urine Mucus (Auto) OCC /LPF 06/03/20 11:00 Urine Ascorbic Acid NEGATIVE (NEGATIVE) 06/03/20 11:00 Impressions: Head CT 06/03/20 00:00 IMPRESSION: 1. No acute intracranial hemorrhage or acute territorial infarct. 2. Heterogeneous enlargement of the visualized left parotid gland with adjacent inflammatory changes, consistent with known acute parotitis, better evaluated on earlier CT facial area. EVIDENCE OF ACUTE STROKE: NO. Facial Bones CT 06/03/20 10:22 IMPRESSION: Constellation of findings consistent with uncomplicated left parotitis. Plan Time Spent: Less than 30 Minutes Stroke Is this a Stroke Patient?: No Acute Heart Failure Is this a Heart Failure Patient?: No
[2020-06-05 14:54] VITALS: BP 140/94
== END 2020-06-05 15:15 | disposition home or self-care (01) | DRG 155 ==
LOC: ER 09:45 → EH 13:55 → OBSVTOIN 15:24 → 4N 15:35
PROVIDERS: ADMIT Internal Medicine; ATTEND Internal Medicine
DX: K11.21 Acute sialoadenitis (principal); L03.211 Cellulitis of face; H62.43 Otitis externa in other diseases classified elsewhere, bilateral; G44.89 Other headache syndrome; Z83.3 Family history of diabetes mellitus; Z82.49 Family history of ischemic heart disease and other diseases of the circulatory system
CPT/HCPCS: 36415; 70450; 70487; 80053; 81001; 83036; 85025; 86735; 86762; 86765; 87040; 96365; 96375; 99285; J0696; J1170; J1650; J1885; J2270; J3490; J7030; J7120